=== PATIENT | male | born 1985 | race African-American/Black ===

== ENCOUNTER 2017-03-10 21:07 | Emergency (ER) | payer OTHER ==
--- NOTE | 2017-03-22 08:35 | ER ---
ADMIT: 03/10/2017 RM/LOC: ER [facility] MR#: [id number] [address] [facility] [address] [place], [place] [id number] ZACH, KAVITA Jennings [address] [phone] Emergency Room Report SEX: M AGE: 31 : 1985 DATE: 03/10/2017 HISTORY OF PRESENT ILLNESS: A 31-year-old comes to the Emergency Department with complaints cough, jaw pain, toothache, and nausea. May have coughed up some blood. See T-sheet for remainder of history and physical. Chest x-ray is unremarkable. CBC is normal. Electrolytes are significant for a creatinine of 1.5. He is given Lisinopril in the Emergency Department and Toradol, given a prescription for Ultram. Instructed to follow up with [facility] for his untreated hypertension. DIAGNOSIS: Temporomandibular joint pain. Andrew Wiggins MD/ rosalinda JOB #: [id number] CC: Kavita Zelaya MD, Attending Physician Godfrey Rea MD, Family Physician
== END 2017-03-10 22:50 | disposition home or self-care (01) ==
LOC: ER 21:07
DX: M26.623 Arthralgia of bilateral temporomandibular joint (principal); I10 Essential (primary) hypertension; F17.210 Nicotine dependence, cigarettes, uncomplicated

== ENCOUNTER 2017-03-26 08:24 | Emergency (ER) | payer SELFPAY ==
--- NOTE | 2017-03-27 10:56 | ER ---
ADMIT: 03/26/2017 RM/LOC: ER [facility] MR#: [id number] [id number] [place], [place] [id number] KAVITA SERRANO [address] [phone] Emergency Room Report SEX: M AGE: 31 : 1985 DATE: 03/26/2017 CHIEF COMPLAINT: Right wrist pain. HISTORY OF PRESENT ILLNESS: The patient is a 31-year-old male, comes in complaining of right wrist pain. It has been going on for the past roughly 36 hours. It does hurt when he moves it or touches it. He denies any recent trauma. He does state that he has been told he has gout in the past, but not had a problem with gout in many years. When he previously had gout, it was in his right foot from best he can recall. He denies any fevers or chills and not having difficulty breathing. Denies any change in bowel or bladder function. MEDICATIONS: 1. Lisinopril. 2. Tramadol. ALLERGIES: NONE. PAST MEDICAL HISTORY: Hypertension and gout. SOCIAL HISTORY: Smokes half a pack a day. Denies any drug or alcohol use. PHYSICAL EXAMINATION: VITAL SIGNS: Blood pressure 163/111, pulse 78, respirations 20, temperature 95.6, and saturation 99% on room air. GENERAL: The patient is alert, oriented, and in no distress. HEAD: Atraumatic. LUNGS: Clear to auscultation. HEART: Regular rate and rhythm. ABDOMEN: Soft. MUSCULOSKELETAL: Examination of right wrist reveals he does have some tenderness with palpation of the wrist and does feel slightly warm. He has limited range of motion secondary to pain in the wrist. I do not see any deformity. Neurovascularly, he is intact. He has no involvement of the right elbow that I can appreciate. Left upper extremity is uninvolved. IMAGING: X-ray of right wrist reveals no acute abnormality. LABORATORY DATA: White count is 5.3, hemoglobin of 16.7, and platelets 251. Sodium 138, potassium 3.9, carbon dioxide 26, and BUN 13. Uric acid is slightly elevated at 8. CRP is 0.29. ADMIT: 03/26/2017 RM/LOC: ER [facility] MR#: [id number] [address] [place], [place] [address] ZACHKAVITA LANDERS [address] [phone] Emergency Room Report SEX: M AGE: 31 : 1985 EMERGENCY DEPARTMENT COURSE: Based on the patient's history of gout and his right wrist pain with slightly elevated uric acid, I do believe this is likely a gout flare up. He was given colchicine 0.6 mg p.o., Toradol 15 mg IM, and [place] 1 tablet in the Emergency Department. He states his pain has significantly improved. He is discharged home on a therapy of prednisone and indomethacin, and he is to follow up with Dr. Hassan if not significantly improved in the next 1 to 2 weeks and return to the ER for any concerning symptoms. DIAGNOSES: 1. Gout flare up. 2. Right wrist pain. Bola Shore MD/ rosalinda JOB #: [id number] CC: Bola Shore MD, Attending Physician Chris Hassan MD, Family Physician
== END 2017-03-26 10:33 | disposition home or self-care (01) ==
LOC: ER 08:24
DX: M25.531 Pain in right wrist (principal); I10 Essential (primary) hypertension; F17.210 Nicotine dependence, cigarettes, uncomplicated

== ENCOUNTER 2017-03-30 02:10 | Emergency (ER) | payer SELFPAY ==
--- NOTE | 2017-03-30 05:20 | ER ---
ADMIT: 03/30/2017 RM/LOC: ER [facility] MR#: [id number] [address] [facility] [id number] [place], [place] [address] ZACH KAVITA NORMA [address] [phone] Emergency Room Report SEX: M AGE: 31 : 1985 DATE: 03/30/2017 The patient is a 31-year-old male with known dental caries, was seen by Dr. Wiggins last week, given penicillin. Exam remarkable for nontoxic, afebrile, acutely uncomfortable male with fractured #17, missing #18 tooth. Left inferior alveolar block with improvement as well as Toradol, Dilaudid, Reglan IM. Home with hydrocodone 5/325 #20, plus 3. Continue penicillin as previously prescribed. Follow up dentist this week. Kavita Zelaya MD/ rosalinda JOB #: [id number] CC: Kavita Zelaya MD, Attending Physician Nathan Oliva MD, Family Physician Nathan Oliva MD
== END 2017-03-30 03:53 | disposition home or self-care (01) ==
LOC: ER 02:10
PROC: 3E0T3BZ Introduction of Anesthetic Agent into Peripheral Nerves and Plexi, Percutaneous Approach (ICD-10-PCS; principal; 2017-03-30)
DX: K02.9 Dental caries, unspecified (principal); I10 Essential (primary) hypertension; Z79.899 Other long term (current) drug therapy

== ENCOUNTER 2017-03-31 22:39 | Emergency (ER) | payer SELFPAY | END 2017-04-01 00:40 | disposition home or self-care (01) | DX: K08.89 Other specified disorders of teeth and supporting structures (principal); I10 Essential (primary) hypertension; F17.210 Nicotine dependence, cigarettes, uncomplicated; Z79.899 Other long term (current) drug therapy ==